=== PATIENT | female | born 1970 | race Caucasian/White ===

== ENCOUNTER 2016-12-09 13:00 | Emergency (ER) | payer OTHER ==
[~2016-12-09] VITALS: Ht 170.2 cm; Wt 126.3 kg
[2016-12-09 13:09] VITALS: TEMP 36.7; Ht 170.2 cm; Wt 126.3 kg
--- NOTE | 2016-12-09 13:24 | EMERGENCY ROOM VISIT NOTE ---
History Report prepared by Blake: Fely Gr Under the Supervision of: Dr. Maicol Talbert M.D. First contact with patient: 13:13 Chief Complaint: PSYCHIATRIC PROBLEMS Stated Complaint: DEPRESSION, EXHAUSTION History of Present Illness The patient is a 46 year old female who presents to the Emergency Room with complaints of worsening depression over the past two weeks. The patient states that she has a history of type 2 bipolar disorder and states that she is intermittently depressed. She states that she has noticed increased depression and exhaustion. The patient reports increased work stressors, but denies any financial issues. She states that she has experienced increased sleep, but additionally reports intermittent insomnia. The patient states that she has been evaluated in an inpatient psychiatric facility in the past, noting that her last admission was in 2006. She states that she has a history of a suicide attempt in 2006, reporting an overdose. The patient reports suicidal thoughts today, but denies any plan. She states that she has been feeling unsafe at home. The patient states that she has not been fully compliant with her medications. She denies any alcohol or drug use. The patient denies any sore throat, cough, congestion or fever. She states that she was instructed to come to the emergency department today by her physician. Source of History: patient Onset: two weeks Position: other (global) Quality: other (depression) Timing: worsening Associated Symptoms: No fevers, No sorethroat, No cough Note: Associated Symptoms: suicidal thoughts, increased sleep, work stressors, exhaustion, intermittent insomnia Review of Systems See HPI for pertinent positives & negatives. A total of 10 systems reviewed and were otherwise negative. Past Medical & Surgical Medical Problems: (1) Bipolar disorder (2) Suicide attempt Family History No pertinent family history stated. Social History Alcohol Use: none Drug Use: none Marital Status: Housing Status: lives with significant other Occupation Status: employed Current/Historical Medications Scheduled Buspirone Hcl (Buspirone Hcl), 30 MG PO BID Cetirizine Hcl (Zyrtec), 10 MG PO DAILY Clonazepam (Klonopin), 0.5 MG PO HS Divalproex Sodium (Depakote Er), 500 MG PO QAM Ibuprofen (Advil), 200-600 MG PO Q4H Levothyroxine Sodium (Levothyroxine Sodium), 175 MCG PO DAILY Lisinopril (Zestril), 2.5 MG PO DAILY Multiple Vitamin (Multivitamin), 1 TAB PO DAILY Omeprazole (Prilosec), 20 MG PO DAILY Oxcarbazepine (Trileptal), 600 MG PO BID Scheduled PRN Dicyclomine Hcl (Dicyclomine Hcl), 10 MG PO TID PRN for stomach cramp Hydrocodone/Acetaminophen 5MG/325MG (Beverly 5MG/325MG), 1 TABLET PO Q6 PRN for Pain Loperamide Hcl (Imodium), 2 MG PO for Diarrhea Ondansetron Hcl (Zofran), 4 MG PO Q6H PRN for nausea Allergies Coded Allergies: Bupropion (Unverified Allergy, Unknown, unk, 12/09/16) Erythromycin (Unverified Allergy, Unknown, hives, 12/09/16) Morphine (Unverified Allergy, Unknown, hot and flushed, 12/09/16) Physical Exam Vital Signs Date Time Temp Pulse Resp B/P (MAP) Pulse Ox O2 Delivery O2 Flow Rate FiO2 12/09/16 13:09 36.7 110 20 152/93 98 Room Air Physical Exam GENERAL: Patient is in no acute distress. HEENT: No acute trauma, normocephalic atraumatic, mucous membranes moist, no nasal congestion, no scleral icterus. NECK: No stridor, no adenopathy, no meningismus, trachea is midline. LUNGS: Clear to auscultation bilaterally, no wheeze, no rhonchi, breath sounds equal. HEART: Tachycardic with a regular rhythm, no murmurs. ABDOMEN: Soft, nontender, bowel sounds positive, no hernias, no peritonitis. EXTREMITIES: No cyanosis or edema, full range of motion of all the joints without pain or difficulty, no signs for acute trauma. NEUROLOGIC: Oriented x 3, no acute motor or sensory deficits, no focal weakness. SKIN: No rash, no jaundice, no diaphoresis. PSYCH: Cooperative and voluntary, admits to suicidal ideation with no plan. Flattened affect. Medical Decision & Procedures Laboratory Results 12/09/16 13:55 12/09/16 13:55 Test 12/09/16 13:55 Red Blood Count 4.30 M/uL (4.2-5.4) Mean Corpuscular Volume 87.0 fL (80-100) Mean Corpuscular Hemoglobin 30.7 pg (25-34) Mean Corpuscular Hemoglobin Concent 35.3 g/dl (32-36) RDW Standard Deviation 42.2 fL (36.4-46.3) RDW Coefficient of Variation 13.1 % (11.5-14.5) Mean Platelet Volume 9.5 fL (7.4-10.4) Anion Gap 6.0 mmol/L (3-11) Est Creatinine Clear Calc Drug Dose 114.4 ml/min Estimated GFR () 95.9 Estimated GFR (Non- 82.8 BUN/Creatinine Ratio 10.8 (10-20) Calcium Level 8.7 mg/dl (8.5-10.1) Total Bilirubin 0.2 mg/dl (0.2-1) Aspartate Amino Transf (AST/SGOT) 25 U/L (15-37) Alanine Aminotransferase (ALT/SGPT) 19 U/L (12-78) Alkaline Phosphatase 68 U/L (45-117) Total Protein 7.0 gm/dl (6.4-8.2) Albumin 3.3 gm/dl (3.4-5.0) Globulin 3.7 gm/dl (2.5-4.0) Albumin/Globulin Ratio 0.9 (0.9-2) Thyroid Stimulating Hormone (TSH) 2.640 uIu/ml (0.300-4.500) Free Thyroxine 0.96 ng/dl (0.80-1.60) Human Chorionic Gonadotropin, Qual NEG (NEG) Salicylates Level < 1.7 mg/dl (2.8-20) Acetaminophen Level < 2 ug/ml (10-30) Valproic Acid (Depakene) Level 113 mcg/ml (50-100) Ethyl Alcohol mg/dL < 3.0 mg/dl (0-3) Laboratory results reviewed by me. ED Course 1313: The patient was evaluated in room A5. A complete history and physical exam was performed. 1500: The patient was signed out to Dr. Hernandez at change of shift. Medical Decision The patient is a 46 year old female who presents to the ED with complaints of depression. Differential diagnoses considered include Suicidal ideation, drug and alcohol abuse, thyroid disorder, electrolyte imbalance, medication noncompliance. There is no leukocytosis or concerning anemia. No significant electrolyte abnormality, kidney failure or hepatitis. The patient appears to be in a euthyroid state. Aspirin and Tylenol levels are undetectable. Alcohol level is undetectable. Valproic acid level is slightly high but not concerning. Urine tox and urinalysis are presently pending. test is negative. The patient did request some Zofran for nausea, this was given orally. The patient was felt medically clear for a psychiatric evaluation. She is being seen by the [facility] psychiatric services. She is currently voluntary. She is suicidal and has a history of suicidal ideation and she has a history of a previous suicide attempt. A psychiatric hospital stay does seem warranted. At this point, a bed search is underway. Dr. Hernandez has assumed care. Impression Primary Impression: Suicidal ideation Additional Impression: Depression Scribe Attestation The scribe's documentation has been prepared under my direction and personally reviewed by me in its entirety. I confirm that the note above accurately reflects all work, treatment, procedures, and medical decision making performed by me. Departure Information Dispostion Still a Patient Referrals Wale Silva M.D. (PCP) Problem Qualifiers
[2016-12-09] MEDS ORDERED: CLON0.5T3 PO (14:05)
[2016-12-09] MEDS ORDERED: DIVA500T3 PO (14:05)
[2016-12-09] MEDS ORDERED: IBUP-1050 PO (14:05)
[2016-12-09] MEDS ORDERED: DICY10CA12 PO (14:05)
[2016-12-09] MEDS ORDERED: OMEP20CA59 PO (14:05)
[2016-12-09] MEDS ORDERED: BUSP30TA2 PO (14:05)
[2016-12-09] MEDS ORDERED: LISI-729 PO (14:05)
[2016-12-09] MEDS ORDERED: HYDR-5688 PO (14:05)
[2016-12-09] MEDS ORDERED: IMD/2 PO (14:05)
[2016-12-09] MEDS ORDERED: CETI10TA10 PO (14:05)
[2016-12-09] MEDS ORDERED: LEVO175T3 PO (14:05)
[2016-12-09] MEDS ORDERED: OXCA600T2 PO (14:05)
[2016-12-09] MEDS ORDERED: ONDA4TAB65 PO (14:05)
[2016-12-09] MEDS ORDERED: MULTTAB58 PO (14:05)
[2016-12-09 14:14] LABS: HEMATOCRIT 37.4 % (37-47); MEAN CORPUSCULAR HEMOGLOBIN 30.7 pg (25-34); MEAN CORPUSCULAR HGB CONC 35.3 g/dl (32-36); MEAN PLATELET VOLUME 9.5 fL (7.4-10.4); PLATELET COUNT 213 K/uL (130-400); WHITE BLOOD COUNT 8.83 K/uL (4.8-10.8)
[2016-12-09 14:31] LABS: BUN/CREATININE RATIO 10.8 (10-20); CALCIUM 8.7 mg/dl (8.5-10.1); CREATININE 0.84 mg/dl (0.60-1.20); POTASSIUM 3.9 mmol/L (3.5-5.1)
[2016-12-09 14:41] LABS: ALB/GLOB RATIO 0.9 (0.9-2); THYROID STIMULATING HORMONE 2.64 uIu/ml (0.300-4.500)
[2016-12-09 14:46] LABS: ACETAMINOPHEN < 2 ug/ml (10-30)
[2016-12-09 14:47] LABS: PREG INTERNAL NEGATIVE QC NEG CLEAR BACKGROUND; PREG INTERNAL POSITIVE QC POS CONTROL LINE
[2016-12-09] MEDS ORDERED: ONDANSETRON 4MG OD TAB PO ONE (15:00)
[2016-12-09 15:26] LABS: URINE APPEARANCE CLEAR (CLEAR); URINE BILIRUBIN NEG (NEG); URINE COLOR YELLOW; URINE NITRITE NEG (NEG); URINE PH >= 9.0 (4.5-7.5); URINE SPECIFIC GRAVITY 1.016 (1.000-1.030); UROBILINOGEN NEG (NEG); ZZUR CULT IF INDIC CLEAN CATCH NO
[2016-12-09 15:31] LABS: MANUAL MICROSCOPIC REQUIRED? NO; REVIEW REQ? NO
--- NOTE | 2016-12-09 16:15 | EMERGENCY ROOM VISIT NOTE ---
ED Visit Note This patient was signed out to me by Dr. Talbert at shift change. At that point, a psychiatric consultation was pending from [facility] They did see her but unfortunately they do not have any beds. Our psychiatric pillowcase cleaner is currently working on placement. When examine her, she is resting comfortably. She denies that she actually tried to hurt herself and she does have a psychiatric history and does follow with Dr. Mccoy. She was accepted and with be transferred to [facility] for further inpatient treatment and evaluation.
[2016-12-09 16:58] LABS: BENZODIAZEPINE, URINE NEG (NEG); COCAINE,URINE NEG (NEG); PHENCYCLIDINE, URINE NEG (NEG)
[2016-12-09] MEDS ORDERED: ONDANSETRON 4MG OD TAB PO STA (19:14)
[2016-12-09 20:19] VITALS: BP 138/83; PULSE 98; O2SAT 97
[2016-12-12 21:41] LABS: COD UR NEGATIVE NG/ML (CUTOFF=50); HYDROCOD UR 178 NG/ML (CUTOFF=50); HYDROMOR UR 110 NG/ML (CUTOFF=50); MORPHINE UR NEGATIVE NG/ML (CUTOFF=50); NORHYDROCODONE CONF UR 569 NG/ML (CUTOFF=50); OXYMORPH UR NEGATIVE NG/ML (CUTOFF=50)
== END 2016-12-09 20:21 ==
LOC: C.EDB 13:02 → C.EDA 20:21
DX: R45.851 Suicidal ideations (principal); F32.9 Major depressive disorder, single episode, unspecified; F41.9 Anxiety disorder, unspecified